=== PATIENT | female | born 1985 | race African-American/Black ===

== ENCOUNTER 2019-08-13 09:02 | Emergency (ER) | payer OTHER ==
[2019-08-13 09:13] VITALS: BP 128/96
[2019-08-13] MEDS ORDERED: DEXAMETHASONE 10 MG/ML VIAL PO STA (10:08)
[2019-08-13] MEDS ORDERED: CHERRY SYRUP 10 ML UDC PO ONE (10:08)
--- NOTE | 2019-08-13 10:12 | ED Physician Documentation ---
PD HPI URI - Stated complaint Stated Complaint: FEVER, BODY ACHES - Chief complaint Chief Complaint: Fever - History obtained from History obtained from: Patient - History of Present Illness Timing - onset: Yesterday Timing duration: Days (1) Timing details: Abrupt onset, Still present Associated symptoms: Fever, Chills, Nasal congestion, Rhinorrhea, Dry cough Contributing factors: Sick contact Improves by: Rest, Medication Similar symptoms before: Has not had sx before Recently seen: Not recently seen - Additional information Additional information: 34-year-old female with a history of asthma has developed a fever muscle aches pains nasal congestion and a cough. She has been using her inhaler and does not feel like she has had any significant problem with her breathing. Review of Systems Constitutional: reports: Fever, Chills, Myalgias, Fatigue Eyes: denies: Decreased vision Ears: denies: Ear pain Nose: reports: Rhinorrhea / runny nose, Congestion Throat: reports: Sore throat Cardiac: denies: Chest pain / pressure, Palpitations Respiratory: reports: Cough. denies: Dyspnea GI: denies: Nausea, Vomiting PD PAST MEDICAL HISTORY - Past Medical History Past Medical History: Yes Respiratory: Asthma - Past Surgical History Past Surgical History: No - Present Medications Home Medications: Ambulatory Orders Medication Instructions Recorded Confirmed Oseltamivir [Tamiflu] 75 mg PO BID #10 capsule 08/13/19 - Allergies Allergies/Adverse Reactions: Allergies Allergy/AdvReac Type Severity Reaction Status Date / Time Sulfa (Sulfonamide Allergy Unknown Verified 08/13/19 09:09 Antibiotics) - Social History Does the pt smoke?: No Smoking Status: Never smoker Does the pt drink ETOH?: No - Immunizations Immunizations are current?: Yes - POLST Patient has POLST: No PD ED PE NORMAL - Vitals Vital signs reviewed: Yes (febrile and hypertensive ) - General General: Alert and oriented X 3, No acute distress, Well developed/nourished - HEENT HEENT: Atraumatic, PERRL, EOMI, Pharynx benign, Other (mild inflamation in the attic without distortion of the landmarks. 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, No motor deficit, No sensory deficit, Normal speech Eye Opening: Spontaneous Motor: Obeys Commands Verbal: Oriented GCS Score: 15 - Psych Psych: Normal mood, Normal affect Results - Vitals Vitals: Vital Signs - 24 hr 08/13/19 09:09 Temperature 38 C H Heart Rate 99 Respiratory 18 Rate Blood Pressure 128/96 H O2 Saturation 100 Oxygen O2 Source Room air - Labs Labs: Laboratory Tests 08/13/19 09:15 Influenza A (Rapid) Negative Influenza B (Rapid) POSITIVE H PD MEDICAL DECISION MAKING - ED course Complexity details: reviewed results, considered differential, d/w patient ED course: 34-year-old female with fever aches cough congestion has Influenza B on nasal swab. She is administered dexamethasone 10 [address] will place her on some Tamiflu as she is just begun her illness and we will excuse her from work for 5 days. Departure - Departure Disposition: 01 Home, Self Care Clinical Impression: Influenza B Condition: Stable Instructions: ED Flu, Medication: Tamiflu (Oseltamivir) Follow-Up: MITESH PELLETIER [Primary Care Provider] - Prescriptions: Oseltamivir [Tamiflu] 75 mg PO BID #10 capsule Forms: Activity restrictions
== END 2019-08-13 10:24 | disposition home or self-care (01) ==
LOC: ED 09:02
DX: J10.1 Influenza due to other identified influenza virus with other respiratory manifestations (principal)
CPT/HCPCS: 87275; 87276; 99283; 99284; A9270